=== PATIENT | female | born 1945 | race Caucasian/White ===

== ENCOUNTER 2020-05-19 08:27 | Outpatient (CLI) | payer MEDICARE, SELFPAY ==
--- NOTE | 2020-05-24 11:32 | WPDPFTINT ---
PFT Interpretation PFT Interpretation: DOS: 05/19/2020 REQUESTING: Dr. Davies REASON FOR TESTING: Shortness of breath PULMONARY FUNCTION TESTS results appear reproducible and reliable.. Spirometry: FEV1 93%, normal. FVC 118%. FEV1% is decreased consistent with airflow obstruction. QUT56-21% is extremely low at 27%. No change with bronchodilator. Lung volumes: TLC 115% normal. RV 117% normal. Normal RV/TLC ratio. Increased airway resistance 400%. Diffusion: DLCO is 61 % mildly reduced. Flow volume loop: Scooping of the expiratory limb. IMPRESSION: Mild obstructive ventilatory impairment which is severe in the small airways, without a response to bronchodilator, increased airway resistance and mild diffusion defect. The mild decrease in diffusion is the most significant finding. This isolated decrease in DLCO suggests anemia or smoking with an increased carboxyhemoglobin. Other considerations include early ILD, possible recurrent pulmonary emboli, pulmonary arterial hypertension, pulmonary vascular involvement with rheumatic diseases. Close clinical follow-up is recommended. Bella Davies MD
== END 2020-05-19 08:28 | disposition home or self-care (01) ==
PROVIDERS: PCP Family Medicine; Visit Provider Internal Medicine Critical Care Medicine
DX: R06.02 Shortness of breath (principal); R94.2 Abnormal results of pulmonary function studies
CPT/HCPCS: 94060; 94726; 94729

== ENCOUNTER 2020-12-07 08:56 | Emergency (ER) | payer MEDICARE, SELFPAY ==
--- NOTE | ~2020-12-07 | XR_ITS ---
EXAMINATION: XR foot RT min 3V EXAM DATE: 12/07/2020 09:31 INDICATION: Right lateral foot pain s/p fall yesterday . Initial encounter. TECHNIQUE: Right foot dorsoplantar, lateral and oblique projections obtained and reviewed. There is no prior study for comparison. FINDINGS: There is acute closed posttraumatic nondisplaced left 5th metatarsal shaft fracture proxim ally, a Steele type fracture. No other suspicious findings. IMPRESSION: Acute right 5th metatarsal shaft fracture. Reviewed, dictated and finalized at location B. CY AND PLANNING MANAGER
[2020-12-07 09:11] VITALS: BP 129/66; PULSE 96; RESP 16; TEMP 37.1; O2SAT 99
--- NOTE | 2020-12-07 09:12 | ED.GENADULT ---
HPI - General Adult General Chief complaint: Extremity Injury, Lower Stated complaint: Right Foot Pain Time Seen by Provider: 12/07/20 09:12 Source: patient and RN notes reviewed Mode of arrival: wheelchair Limitations: no limitations History of Present Illness HPI narrative: 75-year-old female presents today with complaints of right foot pain for 1 day. Kristina report tripping over a cord in home causing her to fall and hit RT foot on bottom ledge of coffee table causing injury to RT foot betwwen 1600/1700 on 12/06/2020, pain increased throughout the night. Advil 400mg last on 12/06/2020 without relief. Hurts to bear weight. No radiation of pain. No numbness, tingling, or loss of mobility. Exacerbating factor applying weight. Denies inability to bear weight. Denies discoloration. Denies suspect foreign body. Denies fever or chills. The patient reports she have not been diagnosed with COVID-19. The patient reports she is not waiting for the results of a COVID-19 lab test. The patient reports she do not have chills, weakness, or fatigue. The patient reports she do not have a new or worsening cough or shortness of breath. Denies chest pain. The patient reports she do not have any rhinorrhea, congestion, sore throat, loss of taste or smell, nausea, vomiting, abdominal pain, and diarrhea. Tolerating po intake well. Denies recent traveling. Denies concerns for COVID-19 or exposures been home with limited outdoor exposure except for essential household needs and return home. At this time, patient is not suspected of having COVID-19. Some parts of this dictation were generated by voice recognition software and may contain typographical and/or grammatical inaccuracies. Related Data Home Medications Medication Instructions Recorded Confirmed albuterol sulfate [ProAir HFA] INHALATION 10/02/19 08/28/20 Allergies Allergy/AdvReac Type Severity Reaction Status Date / Time Penicillins Allergy Mild Unknown Verified 12/07/20 09:12 codeine Allergy Unknown Unknown Verified 12/07/20 09:12 procaine Allergy Unknown Unknown Verified 12/07/20 09:12 Sulfa (Sulfonamide Allergy Unknown Unknown Verified 12/07/20 09:12 Antibiotics) Review of Systems Review of Systems: Narrative: CONSTITUTIONAL: Denies fever, chills, sweats. EYES: Denies visual changes, redness, discharge. ENT: Denies rhinorrhea, congestion, sore throat, otalgia. CARDIOVASCULAR: Denies chest pain, palpitations, edema. RESPIRATORY: Denies dyspnea, wheezing, cough. GASTROINTESTINAL: Denies abdominal pain, nausea, vomiting, diarrhea. SKIN: Denies rash or itching. MUSCULOSKELETAL: Denies acute back pain or myalgia. Complains of pain to right foot. NEUROLOGIC: Denies numbness or focal weakness. PSYCHIATRIC: Denies anxiety or depression. All other systems reviewed are negative, except as documented in HPI and below. [facility] Past Medical History Medical History (Updated 12/07/20 @ 09:54 by WILLIAN Nash) Benign hypertension Bilateral carotid bruits Chronic low back pain COPD (chronic obstructive pulmonary disease) MARC (generalized anxiety disorder) Heart murmur Hypothyroidism (acquired) Hypothyroidism determined by thyroid function test Lumbar spondylosis Smoking greater than 40 pack years Tobacco abuse Surgical History Surgical History (Updated 12/07/20 @ 09:24 by WILLIAN Nash) History of hysterectomy History of spinal surgery No significant past surgical history Family History Family History Sibling Family history of cardiovascular disease Father Family history of lung cancer Mother Family history of malignant neoplasm of brain Social History Social History (Updated 12/07/20 @ 09:25 by WILLIAN Nash) Smoking packs per day: 0.5 Smoking cigarettes per day: 10.0 Years smoked: 55 Smoking pack-years: 27.50 Smoking status: Current every day smoker Tobac
[2020-12-07 09:15] VITALS: BP 129/66; PULSE 96; RESP 16; TEMP 37.1; O2SAT 99
== END 2020-12-07 09:55 | disposition home or self-care (01) ==
PROVIDERS: Emergency Provider Nurse Practitioner Family; PCP Family Medicine
DX: S92.351A Displaced fracture of fifth metatarsal bone, right foot, initial encounter for closed fracture (principal); W18.09XA Striking against other object with subsequent fall, initial encounter; F17.210 Nicotine dependence, cigarettes, uncomplicated; I10 Essential (primary) hypertension; J44.9 Chronic obstructive pulmonary disease, unspecified; F41.9 Anxiety disorder, unspecified; R01.1 Cardiac murmur, unspecified; E03.9 Hypothyroidism, unspecified; M47.816 Spondylosis without myelopathy or radiculopathy, lumbar region
CPT/HCPCS: 73630; 99214; G0463

== ENCOUNTER 2021-11-29 11:02 | Outpatient (CLI) | payer MEDICARE, SELFPAY ==
--- NOTE | ~2021-11-29 | US_ITS ---
EXAMINATION: US art doppler w press LE BI DATE: 11/29/2021 13:54 INDICATION: Peripheral vascular disease TECHNIQUE: Segmental pressures and plethysmographic and Doppler waveforms of the brachial and lower e xtremity arteries were obtained. COMPARISON: None. FINDINGS: Right and left brachial artery pressures of 178 mm Hg and 98 mm Hg, respectively, are markedly discor dant (normal difference <= 30 mmHg). The right and left high-thigh pressure indices are 0.42 and 0.63 , respectively (normal > 1.2). The right ankle-brachial index (RYANN) is 0.30 (normal >= 0.9-1). The right great toe-brachial index (T BI) is 0.10 (normal >= 0.6-0.8). The right lower extremity segmental pressure gradients are increased between the right xgaex-pwr-hnzf popliteal artery and the high right thigh, right bilro-zcm-xjmy pop liteal artery and contralateral left ndykr-iwz-wikf popliteal artery. (normal gradients <= 20-30 mmHg between adjacent levels on the same leg or the same levels on the two legs). Arterial waveforms are biphasic with brisk systolic upstrokes at the right common femoral artery and with progressive delay of the systolic upstrokes and broadening of the systolic peaks in the more distal arteries of the rig ht lower limb. The left RYANN is 0.42. The left TBI is 0.11. The left lower extremity segmental pressure gradients are increased between the high left thigh and the left dycbq-wsw-zlmz popliteal artery. Arterial wavefor ms are biphasic with borderline upstrokes at the left common femoral through the left popliteal arter y and delayed upstrokes with broadened systolic peaks at the left posterior tibial and dorsalis pedis arteries. IMPRESSION: 1. Severe arterial occlusive disease to the bilateral lower limbs with severely decreased bilateral A BIs and TBI's. There are also significantly decreased bilateral high thigh pressure indices suggestin g this may be due to more proximal aortobiiliac disease. 2. Significant discordance of the brachial artery pressures with markedly decreased left brachial art antonio pressure relative to the contralateral right brachial artery suggesting significant stenosis prox imal to the left brachial artery. To-and-fro waveforms seen in the left vertebral artery on a prior c arotid ultrasound study dated 02/23/2019 suggests subclavian steal with significant stenosis in the le ft subclavian artery proximal to the takeoff of the vertebral artery. Reviewed, dictated and finalized at location A. UTER PROGRAMMER CHIEF IMPRESSION: 1. Severe arterial occlusive disease to the bilateral lower limbs with severely decreased bilateral ABIs and TBI's. There are also significantly decreased solange ateral high thigh pressure indices suggesting this may be due to more proximal aortobiiliac disease. 2. Significant discordance of the brachial artery pressures with markedly decre ased left brachial artery pressure relative to the contralateral right brachial artery suggesting significant stenosis proximal to the left brachial artery. T o-and-fro waveforms seen in the left vertebral artery on a prior carotid ultras ound study dated 02/23/2019 suggests subclavian steal with significant stenosis in the left subclavian artery proximal to the takeoff of the vertebral artery.
--- NOTE | 2021-11-29 11:17 | ECHO_ITS ---
Patient Info Name: Kristina Caba Age: 76 years : 1945 Gender: Female Ht: 67 in Wt: 114 lbs BSA: 1.55 m2 HR: 105 bpm BP: 158 / 73 mmHg Technical Quality: Fair Exam Date: 11/29/2021 11:28 AM Exam Location: [facility] Patient Status: Outpatient Admit Date: 11/29/2021 Staff Ordering Physician: Cuco Mishra MD Housing Inspector: Diana Ruby RDCS Attending Provider: Cuco Mishra MD Referring Physician: Danica MILLER; Exam Type: CA echo doppler color flow Study Info Indications R01.1 - Cardiac murmur, unspecified Complete two-dimensional, color flow and Doppler transthoracic echocardiogram is performed. Summary 1. Complete two-dimensional, color flow and Doppler transthoracic echocardiogram is performed. 2. Left ventricular chamber dimension is normal. 3. Left ventricular systolic function is hyperdynamic, estimated at >70%. 4. The left ventricular diastolic function is grade I diastolic dysfunction. 5. E/e' 13 is mildly elevated. 6. The mitral valve has severely posterior calcified annulus. 7. There is trace mitral valve regurgitation. 8. No pulmonary hypertension, estimated pulmonary arterial systolic pressure is 27 mmHg. Left Ventricle E/e' 13 is mildly elevated. Left ventricular chamber dimension is normal. Left ventricular systolic function is hyperdynamic, estimated at >70%. The left ventricular diastolic function is grade I diastolic dysfunction. Right Ventricle Right ventricular chamber dimension is normal. Right ventricular systolic function is normal. Left Atria Left atrial chamber dimension is normal. Right Atria Right atrial chamber dimension is normal. Aortic Valve The aortic valve is trileaflet. There is no aortic valve stenosis. There is no aortic valve regurgitation. Pulmonic Valve There is no pulmonic regurgitation. Mitral Valve The mitral valve has severely posterior calcified annulus. There is no mitral valve stenosis. There is trace mitral valve regurgitation. Tricuspid Valve There is no tricuspid valve regurgitation. No pulmonary hypertension, estimated pulmonary arterial systolic pressure is 27 mmHg. Pericardium/Pleural There is no pericardial effusion. Inferior Vena Cava Normal inferior vena cava with >50% collapse upon inspiration consistent with normal right atrial pressure, 5 mmHg. Aorta The aortic root size at the sinus of Valsalva is normal. Left Ventricular Outflow Tract Name Value Normal LVOT 2D LVOT Diameter 2.0 cm LVOT Doppler LVOT Peak Gradient 4 mmHg LVOT Mean Gradient 3 mmHg LVOT VTI 17 cm LVOT VTI/AV VTI Ratio 0.6 LVOT Stroke Volume 54 ml LVOT CO 5.2 l/min LVOT CI 3.3 l/min/m2 Pulmonic Valve Name Value Normal
== END 2021-11-29 11:03 | disposition home or self-care (01) ==
LOC: ANHCARD 11:03
PROVIDERS: PCP Family Medicine; Visit Provider Family Medicine
DX: I73.9 Peripheral vascular disease, unspecified (principal); R01.1 Cardiac murmur, unspecified; R09.89 Other specified symptoms and signs involving the circulatory and respiratory systems
CPT/HCPCS: 93306; 93923

== ENCOUNTER 2022-02-19 09:53 | Emergency (ER) | payer MEDICARE, SELFPAY ==
--- NOTE | ~2022-02-19 | XR_ITS ---
EXAMINATION: XR chest 1V portable INDICATION: Weakness and cough TECHNIQUE: Portable AP chest at 1049 hours COMPARISON: 10/02/2019 FINDINGS: Calcified pulmonary nodules are consistent with old granulomatous disease. There are minima l airspace opacities of the left lung base. A nodular opacity projecting over the left lower lung zon e likely reflects the nipple. There is no pleural effusion or pneumothorax. The cardiomediastinal josé houette is normal. IMPRESSION: 1. Left basilar airspace opacity, consistent with atelectasis versus pneumonia. Reviewed, dictated and finalized at location A.
[2022-02-19 09:56] VITALS: BP 145/47; PULSE 82; RESP 25; TEMP 36.6; O2SAT 98
--- NOTE | 2022-02-19 10:01 | ECG_ITS ---
Measurements Intervals [place] Rate: 81 P: 87 WV: 134 QRS: 65 QRSD: 86 T: 69 QT: 363 QTc: 421 Interpretive Statements SINUS RHYTHM POSSIBLE LEFT ATRIAL ENLARGEMENT DELAYED PRECORDIAL R/S TRANSITION MINIMAL Q WAVES- INFERIOR LEADS BORDERLINE ECG Electronically Signed On 02-20-2022 9:16:31 CDT by Deshawn Harrell D.O.
[2022-02-19 10:10] VITALS: BP 145/47; PULSE 80; RESP 28; TEMP 36.6; O2SAT 98
[2022-02-19] MEDS: SODIUM CHLORIDE 0.9% IV 1,000 ML 999 ML IV CONT (10:17)
[2022-02-19 10:26] LABS: Basophils Percent Auto 0.3 % (0.2-1.2); Eosinophils Percent Auto 0.1 % (0-4.4); Hemoglobin 11.2 g/dL (12.0-15.0); Immature Granulocyte Absolute 0.17 K/mm3 (0.00-0.031); Immature Granulocyte Percent A 1.1 % (0-0.5); Lymphocytes Absolute Auto 1.15 K/mm3 (0.9-3.2); Lymphocytes Percent Auto 7.2 % (18.3-44.2); Mean Corpuscular HGB Conc 33.9 g/dl (32-36); Mean Corpuscular Hemoglobin 33.3 pg (26-34); Mean Corpuscular Volume 98.2 fl (80-100); Mean Platelet Volume 9.9 fl (7.4-10.4); Monocytes Absolute Auto 0.6 K/mm3 (0.1-0.6); Monocytes Percent Auto 3.5 % (2.6-8.5); Neutrophils Absolute Auto 13.9 K/mm3 (1.3-6.7); Neutrophils Percent Auto 87.8 % (45.5-73.1); Platelet Count Result 245 k/mm3 (150-375); Red Blood Count 3.36 M/mm3 (4.2-5.4); Red Cell Distribution Width 15.2 % (11.5-14.5); White Blood Count 15.9 K/mm3 (4.5-10.0)
[2022-02-19 10:40] LABS: Alanine Aminotransferase 50 U/L (6-35); Albumin Level 3.4 g/dL (3.5-5.1); Alkaline Phosphatase 197 U/L (38-126); Anion Gap 6 mmol/L (8-16); Aspartate Amino Transferase 118 U/L (14-36); Bilirubin,Total 1.3 mg/dL (0.2-1.3); Blood Urea Nitrogen 32 mg/dL (7-17); Calcium 8.4 mg/dL (8.4-10.2); Carbon Dioxide 28 mmol/L (22-30); Chloride 94 mmol/L (98-107); Estimated CRCL calculation 41 ml/min; Estimated Glomerular Filt Rate > 60; Glucose 98 mg/dL (65-110); Potassium 4.4 mmol/L (3.4-5.0); Sodium 128 mmol/L (137-145)
[2022-02-19 11:03] LABS: Influenza A QL RT-PCR Negative (Negative); Influenza B QL RT-PCR Negative (Negative); SARS-CoV-2 RNA PCR Negative
[2022-02-19 11:43] LABS: Appearance Urine Slightly Cloudy (Clear); Bilirubin Urine Negative (Negative); Blood Urine Negative (Negative); Glucose Urine UA Negative (Negative); Ketones Urine Negative (Negative); Leukocyte Esterase Ur Negative LEU/UL (Negative); Nitrate Urine Negative (Negative); Protein Urine Trace mg/dL (Negative); Specific Grav Ur 1.015 (1.001-1.035); Urobilinogen Urine 0.2 mg/dL (<2.0); pH Urine 5.5 (5.0-9.0)
[2022-02-19 11:48] LABS: Add Urine Microscopic? YES; Color Urine Dark Yellow (Yellow)
[2022-02-19 11:55] LABS: Mucus Urine Rare /lpf; RBC Urine 0-2 /hpf (0-2); WBC Urine 0-3 /hpf
--- NOTE | 2022-02-19 13:27 | ED.SOB ---
HPI - SOB/Dyspnea General Chief Complaint: Shortness of Breath/Dyspnea Stated Complaint: SOB & weakness Time Seen by Provider: 02/19/22 09:56 History of Present Illness HPI Narrative: Patient is a 76-year-old female who presents ER with weakness. Patient has been on azithromycin for possible pneumonia for the last 2 days. She been having fevers over the weekend. She endorses cough and some mild dyspnea. She has not been eating or drinking well. Patient was too weak to get up and walk on her own today so she came to the ER for further evaluation. Related Data Home Medications Medication Instructions Recorded Confirmed albuterol sulfate 90 mcg/actuation 2 inh INHALATION Q6H PRN g 12/25/20 01/31/22 aerosol inhaler cyanocobalamin (vitamin B-12) 1,000 mcg PO DAILY 12/25/20 01/31/22 1,000 mcg tablet loratadine 10 mg tablet 10 mg PO DAILY PRN 12/25/20 01/31/22 famotidine 20 mg tablet 20 mg PO DAILY PRN 01/31/22 01/31/22 Allergies Allergy/AdvReac Type Severity Reaction Status Date / Time Penicillins Allergy Mild Unknown Verified 12/08/20 10:56 codeine Allergy Unknown Unknown Verified 12/08/20 10:56 procaine Allergy Unknown Unknown Verified 12/08/20 10:56 Sulfa (Sulfonamide Allergy Unknown Unknown Verified 12/08/20 10:56 Antibiotics) Review of Systems Review of Systems: All systems reviewed & are unremarkable except as noted in HPI and below Constitutional: Constitutional: Reports chills, Reports fever(s) and Reports weakness ENT: Denies nasal congestion and Denies sore throat Cardiovascular: Cardiovascular: Denies chest pain, Denies rapid heart rate and Denies radiating jaw, neck or arm pain Respiratory: Respiratory: Reports cough, Reports dyspnea and Denies wheezing Gastrointestinal: Gastrointestinal: Denies abdominal pain, Denies nausea and Denies vomiting [facility] Past Medical History Medical History (Updated 02/19/22 @ 13:53 by Ace Torres MD) Abnormal fasting glucose Acute bronchitis Benign hypertension Bilateral carotid bruits Body mass index (BMI) less than 19 in adult Chronic low back pain Chronic low back pain with bilateral sciatica COPD (chronic obstructive pulmonary disease) MARC (generalized anxiety disorder) Gastro-esophageal reflux disease without esophagitis GERD (gastroesophageal reflux disease) Heart murmur echocardiogram on 11/29/2021 with calcifications of the mitral valve with trace mitral valve regurgitation with hyperdynamic left ventricle with ejection fraction greater than 70%. 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 Tobacco abuse Vitamin B12 deficiency anemia Widened pulse pressure Surgical History Surgical History (Updated 12/08/20 @ 14:50 by Sven Ocampo MD) History of hysterectomy History of spinal surgery No significant past surgical history Family History Family History (Updated 12/08/20 @ 14:25 by Yudy Florez, RT(R)) Sibling Family history of cardiovascular disease Father Family history of lung cancer Mother Family history of malignant neoplasm of brain Other Cerebrovascular accident Heart disease Hypertension Social History Social History Smoking packs per day: 0.5 Smoking cigarettes per day: 10.0 Years smoked: 55 Smoking pack-years: 27.50 Smoking status: Current every day smoker Tobacco type: cigarettes Second hand tobacco smoke exposure: No Alcohol intake: former Substance use: never Substance use type: does not use Gender iden
[2022-02-19 15:30] VITALS: BP 131/49; PULSE 79; RESP 21; O2SAT 94
== END 2022-02-19 15:25 | disposition home or self-care (01) ==
PROVIDERS: Emergency Provider Emergency Medicine; PCP Family Medicine
DX: J18.9 Pneumonia, unspecified organism (principal); Z20.822 Contact with and (suspected) exposure to COVID-19; I10 Essential (primary) hypertension; J44.9 Chronic obstructive pulmonary disease, unspecified; K21.9 Gastro-esophageal reflux disease without esophagitis; E03.9 Hypothyroidism, unspecified; I73.9 Peripheral vascular disease, unspecified; D51.9 Vitamin B12 deficiency anemia, unspecified; F17.210 Nicotine dependence, cigarettes, uncomplicated; R94.31 Abnormal electrocardiogram [ECG] [EKG]
CPT/HCPCS: 36415; 71045; 80053; 81001; 85025; 87502; 93005; 96360; 99283; C9803; J7030; U0003; U0005

== ENCOUNTER 2022-02-20 09:49 | Emergency (ER) | payer MEDICARE, SELFPAY ==
[2022-02-20] VITALS (16 sets, daily range): BP systolic 83–114; BP diastolic 49–67; PULSE 74–79; RESP 16–36; TEMP 36.6; O2SAT 91–99
--- NOTE | ~2022-02-20 | XR_ITS ---
XR hip LT 2V w AP pelvis DATE: 02/20/2022 10:49 INDICATION: Fall. TECHNIQUE: AP pelvis. AP and lateral views of left hip. COMPARISON: None FINDINGS: There is left subcapital femoral neck fracture with superolateral displacement of the dista l fragment. Mild diffuse osteopenia. Normal alignment at the pubic symphysis and sacroiliac joints. Bilateral Steffee plates and screws at L5-S1. Interbody spinal fusion at L5-S1. Severe degenerative disc disease at L4-5. There is dextroscoliosis of the lumbar spine. There is extensive calcification of the abdominal aorta and iliac arteries. Left external iliac arter y stent. IMPRESSION: Left subcapital femoral neck fracture Reviewed, dictated and finalized at location B.
--- NOTE | ~2022-02-20 | XR_ITS ---
XR femur LT min 2V DATE: 02/20/2022 10:49 INDICATION: Fall. Left leg injury, pain TECHNIQUE: AP and crosstable lateral views COMPARISON: 02/20/2022 left hip FINDINGS: Left subcapital femoral neck fracture with superolateral displacement of the distal fragmen t. No other fracture. No dislocation of the left hip or left knee. IMPRESSION: Left subcapital femoral neck fracture Reviewed, dictated and finalized at location B.
--- NOTE | 2022-02-20 10:24 | ECG_ITS ---
Measurements Intervals [place] Rate: 75 P: 78 DE: 146 QRS: 59 QRSD: 85 T: 41 QT: 399 QTc: 447 Interpretive Statements SINUS RHYTHM POSSIBLE LEFT ATRIAL ENLARGEMENT RSR' IN V1 OR V2, CONSIDER RIGHT VENTRICULAR HYPERTROPHY OR RIGHT VCD BASELINE WANDER- II, III, AVR, AVL, AVF, V1-V6 BORDERLINE ECG Electronically Signed On 02-20-2022 12:43:54 CDT by Deshawn Harrell D.O.
--- NOTE | 2022-02-20 10:25 | ED.FALL ---
HPI - Fall General Chief Complaint: Fall Stated Complaint: fall, hip injury Time Seen by Provider: 02/20/22 10:09 Source: patient and family Mode of arrival: EMS Limitations: no limitations History of Present Illness HPI Narrative: Pt fell last night about 2200 and was unable to get up. Family found her on ground this morning. Pt complains of pain in left groin. Pt says she did not pass out, not sure if she lost balance or legs gave out but does know she didn't pass out. Pt has been on z pack for pneumonia for three days. Pt was seen yesterday in ER. complaint: fall Fall from: standing Fall witnessed: no Place fall occurred: home Loss of consciousness: none Prolonged down time: yes Symptoms prior to fall: none Location of injury: pelvis Related Data Home Medications Medication Instructions Recorded Confirmed albuterol sulfate 90 mcg/actuation 2 inh INHALATION Q6H PRN g 12/25/20 01/31/22 aerosol inhaler cyanocobalamin (vitamin B-12) 1,000 mcg PO DAILY 12/25/20 01/31/22 1,000 mcg tablet loratadine 10 mg tablet 10 mg PO DAILY PRN 12/25/20 01/31/22 famotidine 20 mg tablet 20 mg PO DAILY PRN 01/31/22 01/31/22 Allergies Allergy/AdvReac Type Severity Reaction Status Date / Time Penicillins Allergy Mild Unknown Verified 12/08/20 10:56 codeine Allergy Unknown Unknown Verified 12/08/20 10:56 procaine Allergy Unknown Unknown Verified 12/08/20 10:56 Sulfa (Sulfonamide Allergy Unknown Unknown Verified 12/08/20 10:56 Antibiotics) Review of Systems Review of Systems: All systems reviewed & are unremarkable except as noted in HPI and below [facility] Past Medical History Medical History (Updated 02/20/22 @ 12:26 by Isatu Fox III, DO) Abnormal fasting glucose Acute bronchitis Benign hypertension Bilateral carotid bruits Body mass index (BMI) less than 19 in adult Chronic low back pain Chronic low back pain with bilateral sciatica COPD (chronic obstructive pulmonary disease) MARC (generalized anxiety disorder) Gastro-esophageal reflux disease without esophagitis GERD (gastroesophageal reflux disease) Heart murmur echocardiogram on 11/29/2021 with calcifications of the mitral valve with trace mitral valve regurgitation with hyperdynamic left ventricle with ejection fraction greater than 70%. 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 Tobacco abuse Vitamin B12 deficiency anemia Widened pulse pressure Surgical History Surgical History (Updated 12/08/20 @ 14:50 by Sven Ocampo MD) History of hysterectomy History of spinal surgery No significant past surgical history Family History Family History (Updated 12/08/20 @ 14:25 by Yudy Florez RT(R)) Sibling Family history of cardiovascular disease Father Family history of lung cancer Mother Family history of malignant neoplasm of brain Other Cerebrovascular accident Heart disease Hypertension Social History Social History Smoking packs per day: 0.5 Smoking cigarettes per day: 10.0 Years smoked: 55 Smoking pack-years: 27.50 Smoking status: Current every day smoker Tobacco type: cigarettes Second hand tobacco smoke exposure: No Alcohol intake: former Substance use: never Substance use type: does not use Gender identity (if verbalized by the patient): Female Sexual Orientation (if Verbalized by the Patient): Straight or Heterosexual Exam Const: General: no acute distress Orientation/consciousness: patient oriented x3 [facility]
[2022-02-20 10:50] LABS: Basophils Absolute Auto 0.1 K/mm3 (0.0-0.1); Basophils Percent Auto 0.6 % (0.2-1.2); Eosinophils Absolute Auto 0.1 K/mm3 (0-0.3); Eosinophils Percent Auto 0.5 % (0-4.4); Hematocrit 34.7 % (37.0-47.0); Hemoglobin 11.3 g/dL (12.0-15.0); Lymphocytes Absolute Auto 0.68 K/mm3 (0.9-3.2); Lymphocytes Percent Auto 6.7 % (18.3-44.2); Mean Corpuscular HGB Conc 32.6 g/dl (32-36); Mean Corpuscular Hemoglobin 33.3 pg (26-34); Mean Corpuscular Volume 102.4 fl (80-100); Mean Platelet Volume 9.8 fl (7.4-10.4); Monocytes Absolute Auto 0.3 K/mm3 (0.1-0.6); Monocytes Percent Auto 3.1 % (2.6-8.5); Neutrophils Absolute Auto 8.8 K/mm3 (1.3-6.7); Neutrophils Percent Auto 87.1 % (45.5-73.1); Platelet Count Result 226 k/mm3 (150-375); Red Blood Count 3.39 M/mm3 (4.2-5.4); Red Cell Distribution Width 15.3 % (11.5-14.5); White Blood Count 10.1 K/mm3 (4.5-10.0)
[2022-02-20 11:03] LABS: Alanine Aminotransferase 54 U/L (6-35); Alkaline Phosphatase 223 U/L (38-126); Anion Gap 4 mmol/L (8-16); Aspartate Amino Transferase 120 U/L (14-36); Bilirubin,Total 0.6 mg/dL (0.2-1.3); Blood Urea Nitrogen 32 mg/dL (7-17); Calcium 8.4 mg/dL (8.4-10.2); Carbon Dioxide 28 mmol/L (22-30); Chloride 103 mmol/L (98-107); Creatine Kinase 317 U/L (30-135); Estimated CRCL calculation 43 ml/min; Estimated Glomerular Filt Rate > 60; Glucose 98 mg/dL (65-110); Magnesium 2.3 mg/dL (1.6-2.3); Potassium 3.4 mmol/L (3.4-5.0); Sodium 135 mmol/L (137-145)
[2022-02-20 11:24] LABS: NT Pro B Type Natriuretic Pept 2900 pg/mL (5-100); Troponin I 0.044 ng/mL (0.000-0.034)
--- NOTE | 2022-02-20 13:13 | PM.CNCAR ---
Assessment and Plan Assessment and plan (1) Closed hip fracture: Qualifiers: Encounter type: initial encounter Laterality: left Qualified Code(s): S72.002A - Fracture of unspecified part of neck of left femur, initial encounter for closed fracture Code(s): S72.009A - Fracture of unspecified part of neck of unspecified femur, initial encounter for closed fracture Status: Acute (2) Elevated troponin: Code(s): R77.8 - Other specified abnormalities of plasma proteins Status: Acute (3) Heart murmur: Code(s): R01.1 - Cardiac murmur, unspecified Status: Acute History of Present Illness History of Present Illness Consult date/time: 02/20/22 13:13 Reason For Visit: Left hip fracture [facility] Past Medical History Medical History (Updated 02/20/22 @ 12:26 by Isatu Fox III, DO) Abnormal fasting glucose Acute bronchitis Benign hypertension Bilateral carotid bruits Body mass index (BMI) less than 19 in adult Chronic low back pain Chronic low back pain with bilateral sciatica COPD (chronic obstructive pulmonary disease) MARC (generalized anxiety disorder) Gastro-esophageal reflux disease without esophagitis GERD (gastroesophageal reflux disease) Heart murmur echocardiogram on 11/29/2021 with calcifications of the mitral valve with trace mitral valve regurgitation with hyperdynamic left ventricle with ejection fraction greater than 70%. 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 Tobacco abuse Vitamin B12 deficiency anemia Widened pulse pressure Surgical History Surgical History (Updated 12/08/20 @ 14:50 by Sven Ocampo MD) History of hysterectomy History of spinal surgery No significant past surgical history Family History Family History (Updated 12/08/20 @ 14:25 by Yudy Florez, RT(R)) Sibling Family history of cardiovascular disease Father Family history of lung cancer Mother Family history of malignant neoplasm of brain Other Cerebrovascular accident Heart disease Hypertension Social History Social History Smoking packs per day: 0.5 Smoking cigarettes per day: 10.0 Years smoked: 55 Smoking pack-years: 27.50 Smoking status: Current every day smoker Tobacco type: cigarettes Second hand tobacco smoke exposure: No Alcohol intake: former Substance use: never Substance use type: does not use Gender identity (if verbalized by the patient): Female Sexual Orientation (if Verbalized by the Patient): Straight or Heterosexual Meds Home Medications and Allergies Home Medications Medication Instructions Recorded Confirmed Type inhalational spacing device #1 each 10/22/19 01/31/22 Rx albuterol sulfate 90 mcg/actuation 2 inh INHALATION Q6H PRN g 12/25/20 01/31/22 History aerosol inhaler cyanocobalamin (vitamin B-12) 1,000 mcg PO DAILY 12/25/20 01/31/22 History 1,000 mcg tablet fluticasone fur. 100 mcg-umeclid 1 inh INHALATION DAILY #28 each 12/25/20 01/31/22 Rx 62.5 mcg-vilant 25 mcg inhalat.powder loratadine 10 mg tablet 10 mg PO DAILY PRN 12/25/20 01/31/22 History levothyroxine 50 mcg tablet 50 mcg PO DAILY #45 tablet 07/30/21 01/31/22 Rx levothyroxine 75 mcg tablet 75 mcg PO DAILY #45 tablet 07/30/21 01/31/22 Rx alprazolam 0.5 mg tablet 0.5 mg PO TID PRN #90 tablet 10/01/21 01/31/22 Rx lisinopril 5 mg tablet 5 mg PO DAILY #90 tablet 11/19/21 01/31/22 Rx famotidine 20 mg tablet 20 mg PO DAILY PRN 01/31/22 01/31/22 History brent
[2022-02-20] MEDS: SODIUM CHLORIDE 0.9% IV 1,000 ML 125 ML (13:41)
[2022-02-20] MEDS: ACETAMINOPHEN 500 MG TABLET 1000 MG PO (13:52)
[2022-02-20 16:21] LABS: Troponin I 0.038 ng/mL (0.000-0.034)
== END 2022-02-20 17:09 | disposition short-term general hospital (02) ==
PROVIDERS: Emergency Provider Emergency Medicine; PCP Family Medicine
DX: S72.012A Unspecified intracapsular fracture of left femur, initial encounter for closed fracture (principal); R77.8 Other specified abnormalities of plasma proteins; J18.9 Pneumonia, unspecified organism; I10 Essential (primary) hypertension; J44.9 Chronic obstructive pulmonary disease, unspecified; K21.9 Gastro-esophageal reflux disease without esophagitis; E03.9 Hypothyroidism, unspecified; I73.9 Peripheral vascular disease, unspecified; D51.9 Vitamin B12 deficiency anemia, unspecified; F17.210 Nicotine dependence, cigarettes, uncomplicated; R94.31 Abnormal electrocardiogram [ECG] [EKG]; W19.XXXA Unspecified fall, initial encounter
CPT/HCPCS: 36415; 73502; 73552; 80053; 82550; 83735; 83880; 84484; 85025; 93005; 96361; 96365; 96367; 99285; A9270; J0456; J0696; J7030

== ENCOUNTER 2022-02-28 16:50 | Inpatient (IN) | payer MEDICARE, SELFPAY ==
[2022-02-28] VITALS (13 sets, daily range): BP systolic 132–158; BP diastolic 47–54; PULSE 82–94; RESP 15–41; TEMP 36.5–36.6; O2SAT 93–97; BMI 18.1
--- NOTE | ~2022-02-28 | XR_ITS ---
EXAMINATION: XR chest 2V DATE: 02/28/2022 17:51 INDICATION: Dyspnea. TECHNIQUE: Frontal and lateral views of the chest were obtained. COMPARISON: Chest single view 02/19/2022, chest 2 views 10/02/2019 FINDINGS: A calcified left lung nodule is consistent with old granulomatous disease. There is a diffu se interstitial pattern in the lungs. There are patchy airspace opacities in right upper lobe. There are small pleural effusions. No pneumothorax. The heart size is normal. IMPRESSION: 1. Mild pulmonary edema with small pleural effusions. 2. Airspace opacities in right upper lobe, consistent with pneumonia versus scarring. Reviewed, dictated and finalized at location A. IMPRESSION: 1. Mild pulmonary edema with small pleural effusions. 2. Airspace opacities in right upper lobe, consistent with pneumonia versus sca rring.
--- NOTE | ~2022-02-28 | XR_ITS ---
EXAMINATION: XR chest 2V DATE: 03/03/2022 09:05 INDICATION: Pneumonia with cough TECHNIQUE: frontal and lateral views of the chest were obtained. COMPARISON: Chest radiograph dated 02/28/2022 FINDINGS: Increasing interstitial and airspace opacities in the bilateral mid to lower lung zones. Small bilate ral pleural effusions. Additional focal airspace opacity with a few internal lucencies at the right a pex. Calcified left upper lung nodule consistent with old granulomatous disease. No pneumothorax. The cardiomediastinal silhouette is normal. Visualized bones and soft tissues are unremarkable. IMPRESSION: 1. Increasing opacities in the bilateral mid and lower lung zones which could represent pulmonary rochelle ma, pneumonia or combination thereof. 2. More masslike airspace opacity with central lucencies at the right apex which could represent eith er a cavitary mass or pneumonia or other consolidative lung disease superimposed over emphysema. 2. Small bilateral pleural effusions. Reviewed, dictated and finalized at location A. IMPRESSION: 1. Increasing opacities in the bilateral mid and lower lung zones which could r epresent pulmonary edema, pneumonia or combination thereof. 2. More masslike airspace opacity with central lucencies at the right apex whic h could represent either a cavitary mass or pneumonia or other consolidative dustin ng disease superimposed over emphysema. 2. Small bilateral pleural effusions.
--- NOTE | ~2022-02-28 | CT_ITS ---
EXAMINATION: CT diagnostic chest w con DATE: 03/03/2022 16:27 INDICATION: abnormal chest x-ray TECHNIQUE: Computed tomography (CT) of the chest was performed with 75 mL Omnipaque 300 intravenous c ontrast. Automated exposure control and iterative reconstruction technique were employed. The dose-le ngth product was 156.74 mGy-cm. COMPARISON: X-ray chest same date. FINDINGS: CHEST: Thoracic aorta: Nondilated. Atherosclerotic calcification. Intramural thrombus. Lung parenchyma and airways: 4.5 cm cavitary right upper lobe lesion with thickened nodular fleming and surrounding spiculation. Multiple additional bilateral pulmonary nodules. Bibasilar low-density cons olidation, greater on the right.. Thoracic inlet, axillae and chest wall: No thyroid or soft tissue mass. No axillary lymphadenopathy. Mediastinum: Right hilar lymphadenopathy. Heart and pericardium: Normal heart size. No pericardial effusion. Coronary artery calcifications: Moderate. Pleura: Small bilateral pleural effusions. Upper abdomen: Innumerable peripheral enhancing hepatic lesions with central low density. Thoracic bones: No acute osseous finding in the chest. IMPRESSION: Bilateral lower lobe low-density consolidation, may reflect multifocal pneumonia noting that adenocar cinoma could appear similarly. Cavitary right upper lobe mass with multiple bilateral pulmonary nodul es suspicious for neoplastic disease. Right hilar lymphadenopathy. Small bilateral pleural effusions. Diffuse hepatic metastases. Reviewed, dictated and finalized at location K. IMPRESSION: Bilateral lower lobe low-density consolidation, may reflect multifocal pneumoni a noting that adenocarcinoma could appear similarly. Cavitary right upper lobe mass with multiple bilateral pulmonary nodules suspicious for neoplastic diseas e. Right hilar lymphadenopathy. Small bilateral pleural effusions. Diffuse hepa tic metastases.
--- NOTE | 2022-02-28 16:53 | ECG_ITS ---
Measurements Intervals [place] Rate: 93 P: 78 AK: 137 QRS: 51 QRSD: 84 T: -9 QT: 372 QTc: 464 Interpretive Statements SINUS RHYTHM ATRIAL PREMATURE COMPLEX LEFT ATRIAL ENLARGEMENT BORDERLINE ST-T WAVE ABNORMALITY- DIFFUSE LEADS BASELINE ARTIFACT- III, AVF, V3-V6 BORDERLINE ECG Electronically Signed On 02-28-2022 19:58:35 CDT by Deshawn Harrell D.O.
--- NOTE | 2022-02-28 17:33 | ED.SOB ---
HPI - SOB/Dyspnea General Chief Complaint: Shortness of Breath/Dyspnea <Ana Laura Briceño PA-C - Last Filed: 02/28/22 23:25> Stated Complaint: SOB, Cough <Ana Laura Briceño PA-C - Last Filed: 02/28/22 23:25> Time Seen by Provider: 02/28/22 17:07 <Ana Laura Briceño PA-C - Last Filed: 02/28/22 23:25> History of Present Illness HPI Narrative: Patient is a 76-year-old female with a history of recent hip fracture status post recent repair, peripheral vascular disease, recently diagnosed lung cancer with mets to liver here for evaluation of increased shortness of breath and increased right leg numbness for the past 3 days. Patient states she has been having intermittent issues with right leg numbness has been attributed to her peripheral vascular disease, but she does state ever since she had hip surgery the numbness has increased. Numbness is making it difficult to walk and complete her physical therapy at home, she states she is unable to care for herself as she lives alone. She has been taking her Lovenox injections after her surgery. For this issue, she has been seen by Dr. Ruano, vascular surgeon at [facility] who recommended a bypass surgery, but patient does not wish to pursue surgical intervention at this time. Reportedly, patient never has palpable pulses or doppler signals in her RLE. Additionally reports increased shortness of breath recently. She was recently diagnosed with lung cancer with metastases during hospitalization at [facility], but she does not wish to pursue oncologic treatment and is only interested in symptom control. She denies cough, chest pain, leg swelling, fevers, sick contacts. Patient largely presents to the hospital for placement, she states that she does not feel safe at home taking care of her self, there have been delays in getting her into a long-term care facility. She plans to go to [facility]. <Ana Laura Briceño PA-C - Last Filed: 02/28/22 23:25> Related Data Home Medications: Home Medications Medication Instructions Recorded Confirmed cyanocobalamin (vitamin B-12) 1,000 mcg PO DAILY 12/25/20 03/01/22 1,000 mcg tablet loratadine 10 mg tablet 10 mg PO DAILY PRN 12/25/20 03/01/22 famotidine 20 mg tablet 20 mg PO DAILY PRN 01/31/22 03/01/22 alprazolam 0.5 mg PO HS PRN 03/01/22 03/01/22 <Ana Laura Briceño PA-C - Last Filed: 02/28/22 23:25> Allergies/Adverse Reactions: Allergies Allergy/AdvReac Type Severity Reaction Status Date / Time Penicillins Allergy Mild Unknown Verified 12/08/20 10:56 codeine Allergy Unknown Unknown Verified 12/08/20 10:56 procaine Allergy Unknown Unknown Verified 12/08/20 10:56 Sulfa (Sulfonamide Allergy Unknown Unknown Verified 12/08/20 10:56 Antibiotics) <Ana Laura Briceño PA-C - Last Filed: 02/28/22 23:25> [facility] Past Medical History Medical History: Medical History (Updated 03/01/22 @ 15:44 by Marbin Rico MD) Abnormal fasting glucose Acute bronchitis Benign hypertension Bilateral carotid bruits Body mass index (BMI) less than 19 in adult Chronic low back pain Chronic low back pain with bilateral sciatica COPD (chronic obstructive pulmonary disease) MARC (generalized anxiety disorder) Gastro-esophageal reflux disease without esophagitis GERD (gastroesophageal reflux disease) Heart murmur echocardiogram on 11/29/2021 with calcifications of the mitral valve with trace mitral valve regurgitation with hyperdynamic left ventricle with ejection fraction greater than 70%. Hypothyroidism (acquired) Hypothyroidism determined by thyroid function test Hypothyroidism, unspecified Lumbar spondylosis Peripheral vascular disease Severe peripheral arterial disease in the lower extremities on Doppler study 11/29/2021 with peripheral arterial disease in the left upper extremity as well Rash (~01/2022) possible psoriasis 01/31/2022 Seasonal allergic rhinitis Smoking greater than 40 pack ye
[2022-02-28 17:43] LABS: Basophils Percent Auto 0.2 % (0.2-1.2); Eosinophils Percent Auto 0.1 % (0-4.4); Hematocrit 22.6 % (37.0-47.0); Hemoglobin 7.1 g/dL (12.0-15.0); Immature Granulocyte Absolute 0.71 K/mm3 (0.00-0.031); Lymphocytes Absolute Auto 1.31 K/mm3 (0.9-3.2); Lymphocytes Percent Auto 9.2 % (18.3-44.2); Mean Corpuscular HGB Conc 31.4 g/dl (32-36); Mean Corpuscular Hemoglobin 34.1 pg (26-34); Mean Corpuscular Volume 108.7 fl (80-100); Mean Platelet Volume 9.9 fl (7.4-10.4); Monocytes Absolute Auto 0.5 K/mm3 (0.1-0.6); Monocytes Percent Auto 3.5 % (2.6-8.5); Neutrophils Absolute Auto 11.8 K/mm3 (1.3-6.7); Nucleated Red Blood Cells Absolute Auto 0.2 K/mm3 (0.0-0.012); Nucleated Red Blood Cells Perc 1.7 % (0.0-0.2); Platelet Count Result 376 k/mm3 (150-375); Red Blood Count 2.08 M/mm3 (4.2-5.4); White Blood Count 14.3 K/mm3 (4.5-10.0)
[2022-02-28 17:52] LABS: Alanine Aminotransferase 36 U/L (6-35); Albumin Level 2.8 g/dL (3.5-5.1); Alkaline Phosphatase 274 U/L (38-126); Anion Gap 5 mmol/L (8-16); Aspartate Amino Transferase 105 U/L (14-36); Bilirubin,Total 1.1 mg/dL (0.2-1.3); Blood Urea Nitrogen 15 mg/dL (7-17); Carbon Dioxide 25 mmol/L (22-30); Chloride 107 mmol/L (98-107); Estimated CRCL calculation 63 ml/min; Estimated Glomerular Filt Rate > 60; Glucose 132 mg/dL (65-110); Potassium 3.6 mmol/L (3.4-5.0); Sodium 137 mmol/L (137-145)
[2022-02-28 19:25] LABS: SARS-CoV-2 RNA PCR Negative
--- NOTE | 2022-02-28 19:38 | PM.IMHP ---
H&P: HPI History of Present Illness Date/Time: 02/28/22 19:38 Chief Complaint: Generalized weakness. Narrative: This 76-year-old female with past medical history significant for tobacco dependence, lung cancer, recent hip fracture status post repair, gastroesophageal reflux disease, hypertension, sever peripheral vascular disease. Patient presented to the emergency room due to generalized weakness has been falling as well at home which resulted in hip fracture which is now repair. However patient feels that she is unable and on capable of care for herself at home and would like to be placed at a [facility] or rehabilitation facility. Patient is appetite has been poor as well with significant weight loss, worsening of chronic back pain. Patient does not want to pursue any treatment for her lung cancer but is okay with palliative care. Preliminary workup was significant for chest x-ray with lung infiltrate chemistry panel and complete blood count show WBC 14,000, albumin 2.8. Patient is been admitted for further evaluation management and treatment. Review of Systems Review of Systems: Generalized weakness, recurrent falls, worsening back pain, weight loss, leg pain. Constitutional: Constitutional: Denies chills, Denies fever(s), Reports frequent falls, Reports lethargy, Reports poor appetite, Reports weakness and Reports weight loss Eyes: Eyes: Denies change in vision ENT: Denies dysphagia, Denies nasal congestion, Denies nasal discharge, Denies nasal obstruction and Denies odynophagia Cardiovascular: Cardiovascular: Denies chest pain Respiratory: Respiratory: Reports cough and Reports dyspnea Gastrointestinal: Gastrointestinal: Denies abdominal pain, Denies dyspepsia, Denies heartburn, Denies nausea and Denies vomiting Genitourinary: Genitourinary: Denies dysuria Musculoskeletal: Musculoskeletal: Reports back pain Integumentary/Breasts: Skin/Breast: Denies rash Neurologic: Denies focal weakness and Denies Sensory deficit (Neuro) Psychiatric: Psychiatric: Reports no additional psychiatric complaints and Reports as per HPI Endocrine: Endocrine: Denies cold intolerance, Denies heat intolerance, Denies polyphagia, Denies polydipsia and Denies palpitations Hematologic/Lymphatic: Hematologic/Lymphatic: Reports no additional hematologic/lymphatic complaints and Reports as per HPI Allergic/Immunologic: Allergic/Immunologic: Reports no additional allergic/immunologic complaints and Reports as per HPI [facility] Past Medical History Medical History (Updated 03/01/22 @ 02:28 by Izzy Gutiérrez MD) Abnormal fasting glucose Acute bronchitis Benign hypertension Bilateral carotid bruits Body mass index (BMI) less than 19 in adult Chronic low back pain Chronic low back pain with bilateral sciatica COPD (chronic obstructive pulmonary disease) MARC (generalized anxiety disorder) Gastro-esophageal reflux disease without esophagitis GERD (gastroesophageal reflux disease) Heart murmur echocardiogram on 11/29/2021 with calcifications of the mitral valve with trace mitral valve regurgitation with hyperdynamic left ventricle with ejection fraction greater than 70%. 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
[2022-02-28 19:55] LABS: Lactic Acid Reflex 1.9 mmol/L (0.7-2.0)
--- NOTE | 2022-02-28 23:30 | PC.NURSE ---
Pt would not let fiction and nonfiction prose writer ask admission questions at this time.
[2022-03-01 03:21] VITALS: BMI 18.1
--- NOTE | 2022-03-01 03:23 | PC.NURSE ---
This patient, Kristina Caba, was admitted to [facility] Surg Room 306-02. Patient/family oriented to hospital policies and general routines including ID bracelet, bed and alarms, visiting hours, pain management, procedures, bathroom and other care routines, personal items, smoking policy, room service/diet, and visiting hours. Information on how to activate the Rapid Response Team has been discussed. Patient/Family are encouraged to report perceived risks to care and to ask questions if they do not understand what they are told or what they should do.
[2022-03-01 06:00] VITALS: BP 136/51; PULSE 85; RESP 30; TEMP 36.6; O2SAT 90
[2022-03-01 08:00] VITALS: O2SAT 94
[2022-03-01] MEDS: CYANOCOBALAMIN 1,000 MCG TABLET 1000 MCG PO (10:10)
[2022-03-01] MEDS: lisinopriL 5 MG TABLET PO (10:11)
[2022-03-01] MEDS: LEVOTHYROXINE SODIUM 75 MCG TABLET PO (10:11)
[2022-03-01] MEDS: FAMOTIDINE 20 MG TABLET PO (10:11)
[2022-03-01] MEDS: LORATADINE 10 MG TABLET PO (10:11)
--- NOTE | 2022-03-01 10:35 | PCOTNOTE ---
Unable to complete OT evaluation at this time due to needing WB status for previous L hip fracture surgery performed this month. Will follow.
[2022-03-01 11:14] LABS: Add Urine Microscopic? YES; Appearance Urine Slightly Cloudy (Clear); Bilirubin Urine 1+ (Negative); Blood Urine Negative (Negative); Color Urine Yellow (Yellow); Glucose Urine UA Negative (Negative); Ketones Urine Negative (Negative); Leukocyte Esterase Ur Negative LEU/UL (Negative); Nitrate Urine Negative (Negative); Protein Urine 1+ mg/dL (Negative); Specific Grav Ur >= 1.030 (1.001-1.035); Urobilinogen Urine 0.2 mg/dL (<2.0); pH Urine 5.5 (5.0-9.0)
[2022-03-01 11:20] LABS: Mucus Urine Few /lpf; Squamous Epithelial Cell Urine Moderate /hpf (Few); Transitional Epi Cells Urine Rare /hpf (None Seen)
[2022-03-01 14:00] VITALS: BP 137/54; PULSE 89; RESP 26; TEMP 36.5; O2SAT 93
[2022-03-01 14:58] VITALS: BMI 18.1
--- NOTE | 2022-03-01 15:34 | PM.IMPN ---
Progress Note: A&P Assessment and Plan (1) Pneumonia: Code(s): J18.9 - Pneumonia, unspecified organism Status: Acute Assessment and Plan: Patient with recent admission and discharged from the hospital. She does present with a cough. Chest x-ray shows mild pulmonary edema small pleural effusions as well as a right upper lobe airspace disease. There was concern this may be pneumonia so she was started on vanco, cefepime and Zithromax. White count was elevated at 14 today. Blood cultures no growth to date. Continue current IV antibiotics. Narrow antibiotic coverage tomorrow if she remains stable. (2) Lung cancer: Code(s): C34.90 - Malignant neoplasm of unspecified part of unspecified bronchus or lung Status: Acute Assessment and Plan: Patient has refused any treatment for her lung cancer. She is agreeable to palliative care. This could be arranged through the skilled facility. (3) Protein calorie malnutrition: Code(s): E46 - Unspecified protein-calorie malnutrition Status: Acute Assessment and Plan: BMI 18. Most likely related to her lung cancer. Continue supplements. (4) Chronic low back pain with bilateral sciatica: Code(s): M54.41 - Lumbago with sciatica, right side; M54.42 - Lumbago with sciatica, left side; G89.29 - Other chronic pain Status: Acute Assessment and Plan: Patient complains of chronic back pain. She states this is from a failed surgery. Consider metastatic disease as well. Tylenol available p.r.n. (5) Failure to thrive in adult: Code(s): R62.7 - Adult failure to thrive Status: Acute Assessment and Plan: Related to above. Patient will require placement as unable to care for herself. As above (6) Hip fracture, left: Code(s): S72.002A - Fracture of unspecified part of neck of left femur, initial encounter for closed fracture Status: Acute Assessment and Plan: Patient with a history of recent left hip fracture status post repair. Incision is clean, dry intact. No evidence of active infection. Continue PT and OT. Increase activity level as tolerated. Fall precautions (7) DVT prophylaxis: Code(s): Z29.9 - Encounter for prophylactic measures, unspecified Status: Acute Assessment and Plan: SCDs Subjective Date/time seen: 03/01/22 15:34 Interval history: 76yo female with lung cancer and recent hip fracture repair here for weakness. Patient had a fracture last week that was repaired about 7 days ago. She did well initially and was able to return home but realize that she was just too weak and now is here for placement. She does have lung cancer and is not planning on having this treated. She slept off and on last night. She complains of back pain but this seems more chronic. She is eating some but not a lot. No nausea which is poor appetite. This has been a chronic problem. Exam Narrative: AF 97.7 137/54 89 26 93% 1L Gen - NARD lying almost flat in bed Chest -bibasilar inspiratory crackles. Few scattered rhonchi otherwise. CV - RRR S1/S2 Abd -soft. Scaphoid. Positive bowel sounds Ext - No pedal edema. Bruising noted posterior left thigh. Left anterior hip incision was clean, dry and intact. No evidence of infectious process. Psych - Nml mood and affect Skin - Warm and dry. Objective Data Vital Signs Vital Signs: Vital Signs - 24 hr 02/28/22 16:58 02/28/22 16:59 02/28/22 17:00 Temperature 97.8 F Pulse Rate 93 93 Respiratory Rate 15 17 33 H Blood Pressure 158/52 H Pulse Oximetry 97 97 02/28/22 17:01 02/28/22 17:15 02/28/22 17:16 Temperature Pulse Rate 93 89 90 Respiratory Rate 21 H 33 H 33 H Blood Pressure 153/54 H 150/47 H Pulse Oximetry 96 94 95 02/28/22 17:30 02/28/22 17:31 02/28/22 17:47 Temperature Pulse Rate 90 87 86 Respiratory Rate 38 H 30 H 21 H Blood Pressure 136/51 L Pulse Oximetry
[2022-03-01 20:00] VITALS: O2SAT 95
[2022-03-01 21:28] VITALS: PULSE 85; RESP 18; TEMP 36.1; O2SAT 95
[2022-03-01 23:31] VITALS: BP 146/41
[2022-03-02] VITALS (7 sets, daily range): BP systolic 140–145; BP diastolic 49–56; PULSE 75–88; RESP 16–20; TEMP 36.3–37.2; O2SAT 96–100
[2022-03-02] MEDS: LEVOTHYROXINE SODIUM 50 MCG TABLET PO (05:46)
[2022-03-02 06:19] LABS: Basophils Percent Auto 0.2 % (0.2-1.2); Eosinophils Percent Auto 0.1 % (0-4.4); Hemoglobin 7.6 g/dL (12.0-15.0); Immature Granulocyte Absolute 0.32 K/mm3 (0.00-0.031); Immature Granulocyte Percent A 2.2 % (0-0.5); Lymphocytes Absolute Auto 1.29 K/mm3 (0.9-3.2); Lymphocytes Percent Auto 8.9 % (18.3-44.2); Mean Corpuscular HGB Conc 31.7 g/dl (32-36); Mean Corpuscular Volume 110.6 fl (80-100); Mean Platelet Volume 10.2 fl (7.4-10.4); Monocytes Absolute Auto 0.5 K/mm3 (0.1-0.6); Monocytes Percent Auto 3.3 % (2.6-8.5); Neutrophils Absolute Auto 12.3 K/mm3 (1.3-6.7); Neutrophils Percent Auto 85.3 % (45.5-73.1); Nucleated Red Blood Cells Absolute Auto 0.1 K/mm3 (0.0-0.012); Nucleated Red Blood Cells Perc 0.7 % (0.0-0.2); Platelet Count Result 352 k/mm3 (150-375); Red Blood Count 2.17 M/mm3 (4.2-5.4); Red Cell Distribution Width 21.9 % (11.5-14.5); White Blood Count 14.4 K/mm3 (4.5-10.0)
[2022-03-02 06:32] LABS: Albumin Level 2.9 g/dL (3.5-5.1); Anion Gap 6 mmol/L (8-16); Blood Urea Nitrogen 15 mg/dL (7-17); Carbon Dioxide 26 mmol/L (22-30); Chloride 103 mmol/L (98-107); Estimated CRCL calculation 56 ml/min; Estimated Glomerular Filt Rate > 60; Glucose 111 mg/dL (65-110); Phosphorus 3.6 mg/dL (2.5-4.5); Potassium 3.4 mmol/L (3.4-5.0); Sodium 135 mmol/L (137-145)
--- NOTE | 2022-03-02 09:09 | PC.NURSE ---
pt's blood pressure measures 154/38 using the automatic cuff. It was retaken using a smaller cuff and measured 152/44. A manual was done which required using the standard size cuff (no other size cuff was available) by the THERAPEUTIC RECREATION DIRECTOR who stated that it was 150/0. The THERAPEUTIC RECREATION DIRECTOR explained that she heard a clear heartbeat all the way to zero on the meter. I repeated the manual and got a reading of 150 systolic and while there was a slight difference in sound after the 48 diastolic meliton and another slight difference in sound after the 20 diastolic meliton, I too heard a clear heartbeat all the way to zero on the meter. I contacted Dr. Jhaveri to inform him of the blood pressure readings. I will continue to monitor.
--- NOTE | 2022-03-02 09:16 | PC.NURSE ---
The WORKERS COMPENSATION LEGAL SECRETARY attempted to get pt up out of the bed. As pt went from laying to sitting she stated she was feeling quite dizzy. After waiting a minute for pt to stabilize, the CAMILLA attempted to have pt stand. Pt stated upon standing she felt quite dizzy again. Pt was returned to bed and I was notified of pt's dizziness. The ERP MANAGER was instructed to take a blood pressure which produced concerning results (please see previous note).
[2022-03-02] MEDS: CYANOCOBALAMIN 1,000 MCG TABLET 1000 MCG PO (10:04)
[2022-03-02] MEDS: LORATADINE 10 MG TABLET PO (10:04)
[2022-03-02] MEDS: FAMOTIDINE 20 MG TABLET PO (10:04)
[2022-03-02] MEDS: lisinopriL 5 MG TABLET PO (10:04)
[2022-03-02] MEDS: FUROSEMIDE INJ 40 MG/4 ML VIAL 20 MG IV PUSH (10:52)
--- NOTE | 2022-03-02 11:12 | PCPTNOTE ---
Attempted PT this morning but pt unable to participate due to reported low BP and lasix medication and use of BSC. Will attempt later today to complete PT eval.
--- NOTE | 2022-03-02 12:51 | PC.NURSE ---
pt's daughter, Estelle, called wanting an update. I attempted to return her call but was redirected to voicemail. I left a message stating I was returning her call.
--- NOTE | 2022-03-02 16:16 | PM.IMPN ---
Progress Note: A&P Assessment and Plan (1) Pneumonia: Code(s): J18.9 - Pneumonia, unspecified organism Status: Acute Assessment and Plan: Patient with recent admission and discharged from the hospital. She does present with a cough. Chest x-ray shows mild pulmonary edema small pleural effusions as well as a right upper lobe airspace disease. There was concern this may be pneumonia so she was started on vanco, cefepime and Zithromax. White count was elevated at 14 today. Blood cultures no growth to date. Continue current IV antibiotics. Narrow antibiotic coverage tomorrow if she remains stable. 03/02/2022 interval history: 76 year female presented with complaint of shortness of breath with history tobacco abuse lung cancer chest x-ray concerning for pulmonary edema and lungs sounds rales and rhonchi patient is being treated with Cefepime, azithromycin and vancomycin concerning for healthcare associated pneumonia as patient was recently discharged from the hospital, will add low-dose Lasix and Solu-Medrol, and and updraft. white counts are still elevated if patient symptoms improved will deescalate IV antibiotic will continue to monitor and further recommendation to follow. (2) Lung cancer: Code(s): C34.90 - Malignant neoplasm of unspecified part of unspecified bronchus or lung Status: Acute Assessment and Plan: Patient has refused any treatment for her lung cancer. She is agreeable to palliative care. This could be arranged through the skilled facility. (3) Protein calorie malnutrition: Code(s): E46 - Unspecified protein-calorie malnutrition Status: Acute Assessment and Plan: BMI 18. Most likely related to her lung cancer. Continue supplements. (4) Chronic low back pain with bilateral sciatica: Code(s): M54.41 - Lumbago with sciatica, right side; M54.42 - Lumbago with sciatica, left side; G89.29 - Other chronic pain Status: Acute Assessment and Plan: Patient complains of chronic back pain. She states this is from a failed surgery. Consider metastatic disease as well. Tylenol available p.r.n. (5) Failure to thrive in adult: Code(s): R62.7 - Adult failure to thrive Status: Acute Assessment and Plan: Related to above. Patient will require placement as unable to care for herself. As above (6) Hip fracture, left: Code(s): S72.002A - Fracture of unspecified part of neck of left femur, initial encounter for closed fracture Status: Acute Assessment and Plan: Patient with a history of recent left hip fracture status post repair. Incision is clean, dry intact. No evidence of active infection. Continue PT and OT. Increase activity level as tolerated. Fall precautions (7) DVT prophylaxis: Code(s): Z29.9 - Encounter for prophylactic measures, unspecified Status: Acute Assessment and Plan: SCDs Subjective Date/time seen: 03/02/22 16:16 Chief Complaint: Generalized weakness. HPI-Narrative: This 76-year-old female with past medical history significant for tobacco dependence, lung cancer, recent hip fracture status post repair, gastroesophageal reflux disease, hypertension, sever peripheral vascular disease. Patient presented to the emergency room due to generalized weakness has been falling as well at home which resulted in hip fracture which is now repair. However patient feels that she is unable and on capable of care for herself at home and would like to be placed at a fpc or rehabilitation facility. Patient is appetite has been poor as well with significant weight loss, worsening of chronic back pain. Patient does not want to pursue any treatment for her lung cancer but is okay with palliative care. Preliminary workup was significant for chest x-ray with lung infiltrate chemistry panel and complete blood count show WBC 14,000, albumin 2.8. Patient is been admitted fo
[2022-03-02] MEDS: ALPRAZolam (*CRX) 0.5 MG TABLET PO (20:25)
[2022-03-03] VITALS (9 sets, daily range): BP systolic 136–165; BP diastolic 44–57; PULSE 78–84; RESP 14–16; TEMP 36.8–37; O2SAT 94–99
[2022-03-03] MEDS: LEVOTHYROXINE SODIUM 50 MCG TABLET PO (06:00)
[2022-03-03 06:25] LABS: Hematocrit 25.4 % (37.0-47.0); Hemoglobin 7.9 g/dL (12.0-15.0); Mean Corpuscular HGB Conc 31.1 g/dl (32-36); Mean Corpuscular Volume 112.4 fl (80-100); Mean Platelet Volume 10.3 fl (7.4-10.4); Platelet Count Result 305 k/mm3 (150-375); Red Blood Count 2.26 M/mm3 (4.2-5.4); Red Cell Distribution Width 22.7 % (11.5-14.5); White Blood Count 13.1 K/mm3 (4.5-10.0)
[2022-03-03 06:33] LABS: Anion Gap 3 mmol/L (8-16); Blood Urea Nitrogen 17 mg/dL (7-17); Calcium 7.6 mg/dL (8.4-10.2); Carbon Dioxide 29 mmol/L (22-30); Chloride 100 mmol/L (98-107); Estimated CRCL calculation 49 ml/min; Estimated Glomerular Filt Rate > 60; Glucose 91 mg/dL (65-110); Sodium 132 mmol/L (137-145)
[2022-03-03] MEDS: POTASSIUM CHLORIDE 20 MEQ TABLET 40 MEQ PO (08:46)
[2022-03-03] MEDS: CYANOCOBALAMIN 1,000 MCG TABLET 1000 MCG PO (08:46)
[2022-03-03] MEDS: LORATADINE 10 MG TABLET PO (08:46)
[2022-03-03] MEDS: lisinopriL 5 MG TABLET PO (08:46)
[2022-03-03] MEDS: FAMOTIDINE 20 MG TABLET PO (08:46)
[2022-03-03] MEDS: hydroCHLOROthiazide 25 MG TABLET PO (09:49)
--- NOTE | 2022-03-03 12:24 | PM.IMPN ---
Progress Note: A&P Assessment and Plan (1) Pneumonia: Code(s): J18.9 - Pneumonia, unspecified organism Status: Acute Assessment and Plan: Patient with recent admission and discharged from the hospital. She does present with a cough. Chest x-ray shows mild pulmonary edema small pleural effusions as well as a right upper lobe airspace disease. There was concern this may be pneumonia so she was started on vanco, cefepime and Zithromax. White count was elevated at 14 today. Blood cultures no growth to date. Continue current IV antibiotics. Narrow antibiotic coverage tomorrow if she remains stable. 03/02/2022 interval history: 76 year female presented with complaint of shortness of breath with history tobacco abuse lung cancer chest x-ray concerning for pulmonary edema and lungs sounds rales and rhonchi patient is being treated with Cefepime, azithromycin and vancomycin concerning for healthcare associated pneumonia as patient was recently discharged from the hospital, will add low-dose Lasix and Solu-Medrol, and and updraft. white counts are still elevated if patient symptoms improved will deescalate IV antibiotic will continue to monitor and further recommendation to follow. 03/03/2022 interval history: 76 year female presented with complaint of shortness of breath with history tobacco abuse lung cancer chest x-ray concerning for pulmonary edema and lungs sounds rales and rhonchi patient is being treated with Cefepime, azithromycin and vancomycin concerning for healthcare associated pneumonia as patient was recently discharged from the hospital, on 03/02 low-dose Lasix 20mg x1 and updraft. 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 spoke with the patient's daughter gave update, (2) Lung cancer: Code(s): C34.90 - Malignant neoplasm of unspecified part of unspecified bronchus or lung Status: Acute Assessment and Plan: Patient has refused any treatment for her lung cancer. She is agreeable to palliative care. This could be arranged through the skilled facility. (3) Protein calorie malnutrition: Code(s): E46 - Unspecified protein-calorie malnutrition Status: Acute Assessment and Plan: BMI 18. Most likely related to her lung cancer. Continue supplements. (4) Chronic low back pain with bilateral sciatica: Code(s): M54.41 - Lumbago with sciatica, right side; M54.42 - Lumbago with sciatica, left side; G89.29 - Other chronic pain Status: Acute Assessment and Plan: Patient complains of chronic back pain. She states this is from a failed surgery. Consider metastatic disease as well. Tylenol available p.r.n. (5) Failure to thrive in adult: Code(s): R62.7 - Adult failure to thrive Status: Acute Assessment and Plan: Related to above. Patient will require placement as unable to care for herself. As above (6) Hip fracture, left: Code(s): S72.002A - Fracture of unspecified part of neck of left femur, initial encounter for closed fracture Status: Acute Assessment and Plan: Patient with a history of recent left hip fracture status post repair. Incision is clean, dry intact. No evidence of active infection. Continue PT and OT. Increase activity level as tolerated. Fall precautions (7) DVT prophylaxis: Code(s): Z29.9 - Encounter for prophylactic measures, unspecified Status: Acute Assessment and Plan: SCDs Subjective Date/time seen: 03/03/22 12:24 03/03/2022 interval history: 76 year female presented with compl
--- NOTE | 2022-03-03 12:31 | PM.CNPUL ---
Assessment and Plan Assessment and plan (1) Pneumonia: Code(s): J18.9 - Pneumonia, unspecified organism Status: Acute Assessment and Plan: 76-year-old female presented with shortness of breath weakness after hospitalization at [facility] were she underwent left hip repair for hip fracture reportedly related to metastatic lung carcinoma. The patient refused to have further workup and treatment for lung cancer while at [facility]. Initial chest x-ray showed right lower lobe infiltrate and small pleural effusion on the left as well as leukocytosis most likely related to lower respiratory tract infection. She has been treated with 3 antibiotics for possible health care associated pneumonia. Upon questioning again the patient stated that she does not want any further workup for lung cancer. Agree with current antibiotic regimen for possible pneumonia I would also suggest to get a echocardiogram as this may be congestive heart failure. Further recommendations after reviewing the chest CT. if CT does not show pulmonary embolus consider adding prophylaxis for DVT. (2) Hip fracture, left: Code(s): S72.002A - Fracture of unspecified part of neck of left femur, initial encounter for closed fracture Status: Acute (3) COPD (chronic obstructive pulmonary disease): Qualifiers: COPD type: unspecified COPD Qualified Code(s): J44.9 - Chronic obstructive pulmonary disease, unspecified Code(s): J44.9 - Chronic obstructive pulmonary disease, unspecified Status: Acute (4) Tobacco abuse: Code(s): Z72.0 - Tobacco use Status: Acute History of Present Illness History of Present Illness Consult date: 03/03/22 Chief complaint: Lung cancer Narrative: This 76-year-old female presented with weakness and shortness of breath three days ago. The patient was recently hospitalized in [facility] and underwent hip repair. Reportedly she was told that the hip fracture was related to metastatic lung carcinoma. The patient was offered further workup and treatment treatment for lung carcinoma but refused. While at home she started having weakness and increasing shortness of breath. She had no other symptoms such as chest pain palpitations orthopnea hemoptysis cough wheezing sputum production lower extremity edema. on admission, workup showed d right lower lobe infiltrate small left pleural effusion, leukocytosis. The patient has been treated with 3 antibiotics for possible healthcare associated pneumonia. Patient continues to have weakness but no other respiratory symptoms. She is currently on supplemental oxygen. She is scheduled to undergo chest CT with IV contrast later on today. Review of Systems Review of Systems: Patient reported weight loss over the last few several months. She never had history of lung disease before. She has no orthopnea. She denied having chest pain hemoptysis night sweats. She has no nausea vomiting diarrhea constipation abdominal pain. She has no urinary complaints. She has no history lower extremity edema. The remainder of the 12 point system review is negative. [facility] Past Medical History Medical History (Updated 03/01/22 @ 15:44 by Marbin Rico MD) Abnormal fasting glucose Acute bronchitis Benign hypertension Bilateral carotid bruits Body mass index (BMI) less than 19 in adult Chronic low back pain Chronic low back pain with bilateral sciatica COPD (chronic obstructive pulmonary disease) MARC (generalized anxiety disorder) Gastro-esophageal reflux disease without esophagitis GERD (gastroesophageal reflux disease) Heart murmur echocardiogram on 11/29/2021 with calcifications of the mitral valve with trace mitral valve regurgitation with hyperdynamic left ventricle with ejection fraction greater than 70%. Hypothyroidism (acquired) Hypothyroidism determined by thyroid function test Hypothyroidism, unspecified Lumbar s
[2022-03-03 13:29] LABS: NT Pro B Type Natriuretic Pept 18900 pg/mL (5-100)
[2022-03-03 15:45] LABS: Anion Gap 5 mmol/L (8-16); Blood Urea Nitrogen 16 mg/dL (7-17); Calcium 7.6 mg/dL (8.4-10.2); Carbon Dioxide 29 mmol/L (22-30); Chloride 99 mmol/L (98-107); Estimated CRCL calculation 49 ml/min; Estimated Glomerular Filt Rate > 60; Glucose 107 mg/dL (65-110); Potassium 3.2 mmol/L (3.4-5.0); Sodium 133 mmol/L (137-145)
[2022-03-03] MEDS: ALPRAZolam (*CRX) 0.5 MG TABLET PO (20:02)
--- NOTE | 2022-03-04 | ECHO_ITS ---
Patient Info Name: Kristina Caba Age: 76 years : 1945 Gender: Female Ht: 67 in Wt: 115 lbs BSA: 1.56 m2 HR: 82 bpm BP: 150 / 58 mmHg Technical Quality: Good Exam Date: 03/04/2022 2:08 PM Exam Location: [facility] Patient Status: Inpatient Admit Date: 03/03/2022 Staff Ordering Physician: Ofelia Jhaveri MD Travel Writer: Kong Kim, BHUPENDRA, RT Attending Provider: Izzy Gutiérrez MD Exam Type: CA echo doppler color flow Study Info Indications R06.02 - Shortness of breath Complete two-dimensional, color flow and Doppler transthoracic echocardiogram is performed. Summary 1. Complete two-dimensional, color flow and Doppler transthoracic echocardiogram is performed. 2. Left ventricular chamber dimension is normal. 3. Left ventricular systolic function is normal, estimated at 60-65%. 4. The left ventricular diastolic function is abnormal. 5. E/e' 13 is mildly elevated. 6. Left atrial chamber dimension is mildly enlarged. 7. The mitral valve has moderately calcified annulus. 8. There is trace pulmonic regurgitation. Left Ventricle E/e' 13 is mildly elevated. Left ventricular chamber dimension is normal. Left ventricular systolic function is normal, estimated at 60-65%. The left ventricular diastolic function is abnormal. Right Ventricle Right ventricular systolic function is normal and with normal TAPSE 1.8 cm. Right ventricular chamber dimension is normal. Left Atria Left atrial chamber dimension is mildly enlarged. Right Atria Right atrial chamber dimension is normal. Aortic Valve The aortic valve is trileaflet. There is no aortic valve stenosis. There is no aortic valve regurgitation. Pulmonic Valve There is trace pulmonic regurgitation. Mitral Valve The mitral valve has moderately calcified annulus. There is no mitral valve stenosis. There is no mitral valve regurgitation. Tricuspid Valve There is no tricuspid valve regurgitation. Pericardium/Pleural There is no pericardial effusion. Inferior Vena Cava Normal inferior vena cava with >50% collapse upon inspiration consistent with normal right atrial pressure, 5 mmHg. Aorta The aortic root size at the sinus of Valsalva is normal. Left Ventricular Outflow Tract Name Value Normal LVOT 2D LVOT Diameter 2.0 cm LVOT Doppler LVOT Peak Gradient 2 mmHg LVOT Mean Gradient 1 mmHg LVOT VTI 16 cm LVOT VTI/AV VTI Ratio 0.6 LVOT Stroke Volume 48 ml LVOT CO 4.1 l/min LVOT CI 2.7 l/min/m2 Mitral Valve Name Value Normal MV Doppler MV Decel [place] 470 cm/s2 MV PHT 62 ms MV Area (
[2022-03-04 03:15] VITALS: O2SAT 93
[2022-03-04] MEDS: LEVOTHYROXINE SODIUM 75 MCG TABLET PO (05:36)
[2022-03-04 05:41] VITALS: BP 150/58; PULSE 85; RESP 14; TEMP 36.6; O2SAT 98
[2022-03-04 07:14] LABS: Hematocrit 24.5 % (37.0-47.0); Hemoglobin 7.6 g/dL (12.0-15.0); Mean Corpuscular Hemoglobin 34.5 pg (26-34); Mean Corpuscular Volume 111.4 fl (80-100); Mean Platelet Volume 10.1 fl (7.4-10.4); Platelet Count Result 258 k/mm3 (150-375); White Blood Count 14.6 K/mm3 (4.5-10.0)
[2022-03-04 07:25] LABS: Anion Gap 3 mmol/L (8-16); Blood Urea Nitrogen 12 mg/dL (7-17); Calcium 7.4 mg/dL (8.4-10.2); Carbon Dioxide 29 mmol/L (22-30); Chloride 98 mmol/L (98-107); Estimated CRCL calculation 56 ml/min; Estimated Glomerular Filt Rate > 60; Glucose 96 mg/dL (65-110); Potassium 3.4 mmol/L (3.4-5.0); Sodium 130 mmol/L (137-145)
[2022-03-04 07:40] LABS: Vancomycin Trough 5.6 ug/mL (10.0-20.0)
[2022-03-04 08:52] VITALS: O2SAT 97
[2022-03-04 09:10] VITALS: O2SAT 95
[2022-03-04] MEDS: CYANOCOBALAMIN 1,000 MCG TABLET 1000 MCG PO (09:11)
[2022-03-04] MEDS: lisinopriL 5 MG TABLET PO (09:11)
[2022-03-04] MEDS: FAMOTIDINE 20 MG TABLET PO (09:11)
[2022-03-04] MEDS: LORATADINE 10 MG TABLET PO (09:11)
[2022-03-04] MEDS: POTASSIUM CHLORIDE 20 MEQ TABLET 40 MEQ PO (09:11)
[2022-03-04] MEDS: hydroCHLOROthiazide 25 MG TABLET PO (09:11)
[2022-03-04] MEDS: ENOXAPARIN 40 MG/0.4 ML SYRINGE SUB-Q (09:11)
--- NOTE | 2022-03-04 11:04 | PM.IMPN ---
Progress Note: A&P Assessment and Plan (1) Pneumonia: Code(s): J18.9 - Pneumonia, unspecified organism Status: Acute Assessment and Plan: Patient with recent admission and discharged from the hospital. She does present with a cough. Chest x-ray shows mild pulmonary edema small pleural effusions as well as a right upper lobe airspace disease. There was concern this may be pneumonia so she was started on vanco, cefepime and Zithromax on 03/01. No fevers no white count remains persistently elevated at 14K. CT of the chest noted. Blood cultures no growth to date. Continue current IV antibiotics. (2) Lung cancer: Code(s): C34.90 - Malignant neoplasm of unspecified part of unspecified bronchus or lung Status: Acute Assessment and Plan: Patient has refused any treatment for her lung cancer. CT scan shows bilateral lower lobe consolidation with the right upper lobe cavitary lesion, multiple bilateral pulmonary nodules as well as diffuse hepatic metastasis. Spoke with her about hospice. She is agreeable to talk with hospice organization. She wants her daughter to be on lying as well to ask questions. Discharge planning with hospice being discussed. (3) Protein calorie malnutrition: Code(s): E46 - Unspecified protein-calorie malnutrition Status: Acute Assessment and Plan: BMI 18. Most likely related to her lung cancer. Continue supplements. (4) Chronic low back pain with bilateral sciatica: Code(s): M54.41 - Lumbago with sciatica, right side; M54.42 - Lumbago with sciatica, left side; G89.29 - Other chronic pain Status: Acute Assessment and Plan: Patient complains of chronic back pain. She states this is from a failed surgery. Consider metastatic disease as well. Tylenol available p.r.n. (5) Failure to thrive in adult: Code(s): R62.7 - Adult failure to thrive Status: Acute Assessment and Plan: Related to above. Patient will require placement as unable to care for herself. As above (6) Hip fracture, left: Code(s): S72.002A - Fracture of unspecified part of neck of left femur, initial encounter for closed fracture Status: Acute Assessment and Plan: Patient with a history of recent left hip fracture status post repair. Continue PT and OT. Increase activity level as tolerated. Fall precautions (7) DVT prophylaxis: Code(s): Z29.9 - Encounter for prophylactic measures, unspecified Status: Acute Assessment and Plan: [place] Subjective Date/time seen: 03/04/22 11:04 Interval history: 76yo female with lung cancer and recent hip fracture repair here for weakness. Assuming care. Chart reviewed. No problems overnight. She feels tired. She did get out of bed to the chair yesterday but was too weak to do it today. She denies any headache or vision changes. No chest pain. She does feel short of breath. Continues to have a nonproductive cough. She complains of back pain again but states that this is chronic. Exam Narrative: AF 97.8 150/58 85 14 95% 2L Gen -chronically ill female no acute distress Chest -coarse breath sounds anteriorly CV - RRR S1/S2 Abd -soft. Scaphoid. Positive bowel sounds Ext - No pedal edema. Psych - Nml mood and affect. Alert and appropriate Skin - Warm and dry. Objective Data Vital Signs Vital Signs: Vital Signs - 24 hr 03/03/22 14:00 03/03/22 20:00 03/03/22 20:15 Temperature 98.4 F Pulse Rate 84 Respiratory Rate 16 Blood Pressure 159/44 H Pulse Oximetry 96 94 96 03/03/22 20:16 03/03/22 22:00 03/03/22 23:23 Temperature 98.6 F Pulse Rate 80 Respiratory Rate 14 Blood Pressure 136/49 L Pulse Oximetry 97 99 96 03/04/22 03:15 03/04/22 05:41 03/04/22 08:52 Temperature 97.8 F Pulse Rate 85 Respiratory Rate 14 Blood Pressure 150/58 H Pulse Oximetry 93 98 97 03/04/22 09:10 Temperature Pulse Ra
--- NOTE | 2022-03-04 11:09 | PCPTNOTE ---
Patient declined PT stating she did not feel well this morning. PT will continue to follow per plan of care.
[2022-03-04 14:00] VITALS: BP 130/42; PULSE 80; RESP 22; TEMP 35.9; O2SAT 96
--- NOTE | 2022-03-04 14:03 | PM.DS ---
DS: Admitting Diagnosis Discharge Date 03/04/22 Admitting Diagnosis Weakness DS: Discharge Diagnosis Discharge Diagnosis (1) Pneumonia: Code(s): J18.9 - Pneumonia, unspecified organism Status: Acute Assessment and Plan: Patient had a recent admission and discharged from the hospital. She presented with a cough. Chest x-ray showed mild pulmonary edema small pleural effusions as well as a right upper lobe airspace disease. There was concern this may be pneumonia so she was started on vanco, cefepime and Zithromax on 03/01. No fevers and white count remains persistently elevated at 14K. CT of the chest noted. Blood cultures no growth to date. Plan to continue abx for a total of 7 days but concern that the CT chest findings were related to cancer and not infectious process. (2) Lung cancer: Code(s): C34.90 - Malignant neoplasm of unspecified part of unspecified bronchus or lung Status: Acute Assessment and Plan: Patient has refused any treatment for her lung cancer. CT scan of the chest shows bilateral lower lobe consolidation with the right upper lobe cavitary lesion, multiple bilateral pulmonary nodules as well as diffuse hepatic metastasis. Discussed hospice but patient/family want skilled placement. (3) Protein calorie malnutrition: Code(s): E46 - Unspecified protein-calorie malnutrition Status: Acute Assessment and Plan: BMI 18. Most likely related to her lung cancer. She was given supplements. (4) Chronic low back pain with bilateral sciatica: Code(s): M54.41 - Lumbago with sciatica, right side; M54.42 - Lumbago with sciatica, left side; G89.29 - Other chronic pain Status: Acute Assessment and Plan: Patient complains of chronic back pain. She states this is from a failed surgery. (5) Failure to thrive in adult: Code(s): R62.7 - Adult failure to thrive Status: Acute Assessment and Plan: Related to above. (6) Hip fracture, left: Code(s): S72.002A - Fracture of unspecified part of neck of left femur, initial encounter for closed fracture Status: Acute Assessment and Plan: Patient with a history of recent left hip fracture status post repair. She worked with PT and OT. Placement was arranged. DS: Summary Hospital Course Reason for hospitalization: 76yo female with lung cancer and recent hip fracture repair here for weakness. Please see H&P for details. Hospital Course: Please see above for details of hospital course Status at Discharge Cognitive/behavioral status at discharge: Stable Time Spent with Patient Time attestation: Total time spent providing and/or coordinating discharge services: 34 minutes Time spent: Greater than 30 minutes Specific discharge activities: Left message with dtr. Exam Narrative: AF 97.8 150/58 85 14 95% 2L Gen -chronically ill female no acute distress Chest -coarse breath sounds anteriorly CV - RRR S1/S2 Abd -soft. Scaphoid. Positive bowel sounds Ext - No pedal edema. Psych - Nml mood and affect. Alert and appropriate Skin - Warm and dry. DS: Data Data Completed and Pending Labs on day of discharge: Labs from last 24 hours 03/04/22 03/04/22 03/04/22 06:48 06:48 06:48 WBC 14.6 H RBC 2.20 L Hgb 7.6 L Hct 24.5 L MCV 111.4 H MCH 34.5 H MCHC 31.0 L RDW 23.0 H Plt Count 258 MPV 10.1 Sodium 130 L Potassium 3.4 Chloride 98 Carbon Dioxide 29 Anion Gap 3 L BUN 12 Creatinine 0.60 L Estim Creat Clear Calc 56 Estimated GFR > 60 Glucose 96 Calcium 7.4 L Vancomycin Trough 5.6 L 03/03/22 15:09 WBC RBC Hgb Hct MCV MCH MCHC RDW Plt Count MPV Sodium 133 L Potassium 3.2 L Chloride 99 Carbon Dioxide 29 Anion Gap 5 L BUN 16 Creatinine 0.70 Estim Creat Clear Calc 49 Estimated GFR > 60 Glucose 107 Calcium 7.6 L
--- NOTE | 2022-03-06 11:37 | PC.NURSE ---
Echo report shwon to Dr. Rico.
== END 2022-03-04 15:30 | DRG 194 ==
LOC: ANHED 20:36 → ANH3MEDSUR 03-01 05:40
PROVIDERS: Emergency Medicine; Family Medicine; Internal Medicine Pulmonary Disease; Physician Assistant; Admitting Provider Internal Medicine; Emergency Provider Emergency Medicine; PCP Family Medicine; Visit Provider Internal Medicine
DX: J18.9 Pneumonia, unspecified organism (principal); C34.90 Malignant neoplasm of unspecified part of unspecified bronchus or lung; E46 Unspecified protein-calorie malnutrition; J44.0 Chronic obstructive pulmonary disease with (acute) lower respiratory infection; C78.7 Secondary malignant neoplasm of liver and intrahepatic bile duct; Z68.1 Body mass index [BMI] 19.9 or less, adult; R62.7 Adult failure to thrive; Z20.822 Contact with and (suspected) exposure to COVID-19; G89.29 Other chronic pain; M54.42 Lumbago with sciatica, left side; M54.41 Lumbago with sciatica, right side; I73.9 Peripheral vascular disease, unspecified; K21.9 Gastro-esophageal reflux disease without esophagitis; F17.210 Nicotine dependence, cigarettes, uncomplicated; F41.1 Generalized anxiety disorder; E03.9 Hypothyroidism, unspecified; D64.9 Anemia, unspecified; S72.002D Fracture of unspecified part of neck of left femur, subsequent encounter for closed fracture with routine healing; Z98.890 Other specified postprocedural states
CPT/HCPCS: 36415; 71046; 71260; 80048; 80053; 80069; 80202; 81001; 83605; 83735; 83880; 85025; 85027; 87040; 93005; 93306; 94660; 96365; 96366; 96367; 96375; 97110; 97161; 97165; 97530; 97535; 99285; A9270; C9803; G0378; J0456; J0692; J1650; J1940; J3370; J7060; Q9967; U0003; U0005